=== PATIENT | male | born 1995 ===

== ENCOUNTER 2019-04-01 14:20 | Emergency (ER) | payer SELFPAY ==
--- NOTE | 2019-04-01 14:38 | RAD ---
LEFT ANKLE THREE VIEWS: 04/01/19 HISTORY: Injury, left ankle pain. FINDINGS/IMPRESSION: Soft tissue swelling is present. The ankle mortise is maintained. No fracture or dislocation is ident ified. POS: OFF
== END 2019-04-01 14:57 | disposition home or self-care (01) ==
LOC: ERS 14:20
DX: S93.402A Sprain of unspecified ligament of left ankle, initial encounter (principal); F17.290 Nicotine dependence, other tobacco product, uncomplicated; X58.XXXA Exposure to other specified factors, initial encounter; Y93.67 Activity, basketball; Y99.8 Other external cause status